=== PATIENT | female | born 1980 | race African-American/Black ===

== ENCOUNTER 2018-10-03 16:52 | Emergency (ER) | payer BC ==
[~2018-10-03] VITALS: Ht 165.1 cm; Wt 64.0 kg
[2018-10-03] MEDS ORDERED: SODIUM CHLORIDE 0.9% 1,000 ML IV ONE (17:34)
[2018-10-03 18:21] LABS: BASOPHILS % 0.8 % (0.0-2.0); HEMATOCRIT. 40.4 % (36.0-48.0); HEMOGLOBIN. 13.6 g/dL (12.0-16.0); LYMPHOCYTES % 14.7 % (20.0-50.0); MEAN CORPUSCULAR HEMOGLOBIN 29.5 pg (28.0-32.0); MEAN PLATELET VOLUME 9.7 fl (7.4-10.4); MONOCYTES % 6.1 % (2.0-8.0); NEUTROPHILS % 77.4 % (40.0-76.0); PLATELET 219 x1000/uL (130-400); RED CELL DISTRIBUTION WIDTH 13.2 % (11.6-14.6)
[2018-10-03 18:26] LABS: CHLORIDE 106 mEq/L (98-107)
[2018-10-03 18:51] LABS: B-HCG QUANTITATIVE 26443 mIU/mL (<3)
[2018-10-03 19:16] LABS: CLARITY URINE CLEAR (CLEAR); COLOR URINE YELLOW (YELLOW); KETONES URINE NEGATIVE (NEGATIVE); LEUKOCYTE ESTERASE URINE NEGATIVE (NEGATIVE); NITRITE URINE NEGATIVE (NEGATIVE); OCCULT BLOOD URINE 3+ (NEGATIVE); PH URINE 5.5 (4.5-8.0); PROTEIN URINE NEGATIVE (NEGATIVE); SPECIFIC GRAVITY URINE 1.011 (1.005-1.030); UROBILINOGEN URINE 0.2 E.U./dL (0.2-1.0)
[2018-10-03 21:15] VITALS: BP 114/71
== END 2018-10-03 21:30 | disposition home or self-care (01) ==
LOC: ER 18:18
DX: O20.0 Threatened abortion (principal); O26.891 Other specified pregnancy related conditions, first trimester; O28.8 Other abnormal findings on antenatal screening of mother; Z3A.00 Weeks of gestation of pregnancy not specified; Z3A.01 Less than 8 weeks gestation of pregnancy
CPT/HCPCS: 36415; 76801; 76817; 80053; 81003; 81025; 84702; 85025; 86850; 86900; 86901; 99284; J7030